=== PATIENT | male | born 1980 | race Caucasian/White ===

== ENCOUNTER 2018-08-05 10:26 | Outpatient (REF) | payer SELFPAY ==
[2018-08-05 22:29] LABS: Kit/Specimen SENT
== END 2018-08-05 10:46 ==
LOC: LBN 10:26
PROVIDERS: PCP Nurse Practitioner; Visit Provider Pathology Clinical Pathology/Laboratory Medicine
DX: Z00.5 Encounter for examination of potential donor of organ and tissue (principal)
CPT/HCPCS: 36415

== ENCOUNTER 2020-01-12 16:59 | Emergency (ER) | payer SELFPAY ==
[2020-01-12 17:04] VITALS: BP 138/76; PULSE 61; RESP 16; TEMP 36.5; O2SAT 99
--- NOTE | 2020-01-12 17:30 | DI.RAD_ITS ---
EXAM: XR PORTABLE CHEST AP CLINICAL HISTORY: cough, fever, r/o pneumonia. concern for covid TECHNIQUE: 2D digital imaging was performed. COMPARISON: CHEST 2 VIEWS PA,LAT from 12/07/2015 FINDINGS: MEDIASTINUM: Normal. HEART: Normal. PULMONARY VASCULATURE: Normal. LUNGS: There are increased lung markings in the bases bilaterally. No focal consolidating infiltrate is present. PLEURAL SPACE: No pleural effusion or pneumothorax. BONE:Normal. OTHER FINDINGS:There is poor inspiration. IMPRESSION: Increased lung markings in the bases bilaterally. No focal consolidating infiltrate. DATA REPOSITORY: RADIATION DOSE DELIVERED:
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
--- NOTE | 2020-01-12 18:09 | DI.VRAD_ITS ---
Addendum created by Jaiden Smith MD on 01/12/2020 6:14:53 PM EDT Hannah Koenig was made aware of the the above findings on 01/12/2020 at 6:14 p.m. Eastern standard time. Initial report created on 01/12/2020 6:09:01 PM EDT PROCEDURE INFORMATION: Exam: XR Chest, 1 View Exam date and time: 01/12/2020 5:53 PM Age: 39 years old Clinical indication: Other: Cough, fever, R/O pneumonia, concern for covid TECHNIQUE: Imaging protocol: XR of the chest Views: 1 view. COMPARISON: CR CHEST 2 VIEWS PA,LAT 12/07/2015 8:02 PM FINDINGS: Lungs: There is a rounded ground-glass opacification within the left lower lobe. There is questionable ground-glass opacification within the right lower lobe. These findings are new when compared to the prior study. Pleural space: Unremarkable. No pleural effusion. No pneumothorax. Heart/Mediastinum: Unremarkable. No cardiomegaly. Bones/joints: Unremarkable. IMPRESSION: Bilateral ground-glass opacifications as above. Clinical correlation is recommended. Further evaluation could be obtained with a CT scan of the chest for a more definitive diagnosis. Dictated and Authenticated by: Jaiden Smith MD. Ordering:PEPITO Young MD
[2020-01-12 18:27] VITALS: BP 126/79; PULSE 89; RESP 17; TEMP 36.8; O2SAT 97
== END 2020-01-12 19:05 | disposition home or self-care (01) ==
PROVIDERS: Emergency Provider Physician Assistant; PCP Nurse Practitioner
DX: R06.02 Shortness of breath (principal); R50.9 Fever, unspecified; R05 Cough; B34.9 Viral infection, unspecified; Z87.891 Personal history of nicotine dependence
CPT/HCPCS: 99283; 71045

== ENCOUNTER 2020-10-01 23:14 | Emergency (ER) | payer SELFPAY ==
--- NOTE | 2020-10-01 00:02 | DI.CT_ITS ---
EXAM: CT ABDOMEN PELVIS W CLINICAL HISTORY: mid abdominal pain, n/v. TECHNIQUE: Imaging Protocol: Axial computed tomography images with coronal and sagittal reformatted images were created and reviewed CONTRAST MATERIAL: Intravenous: Omnipaque 100cc Oral: None COMPARISON: No exams were available for comparison FINDINGS: VISUALIZED LUNG BASES: There is an 8-9 millimeter noncalcified pleural-based nodule in the medial asp ect posterior basal segment right lower lobe. This require follow-up. There no pleural effusions ev ident.. ABDOMEN: There is no ascites. LIVER: There are no obvious focal hepatic lesions evident. Intrahepatic ducts are not dilated GALLBLADDER/BILIARY: Minimal gallbladder wall thickening. No obvious gallstones. CBD is slightly pro minent measuring 8 millimeters. There is no calculus in the lower CBD. No obvious pancreatic head m ass. PANCREAS: No evidence of pancreatic mass nor dilatation of the pancreatic duct. SPLEEN: Spleen is not enlarged. No obvious intrasplenic lesions. Splenic and portal veins are paten t. ADRENALS: There are no significant adrenal masses. KIDNEYS: No calculi nor hydronephrosis. No solid renal masses. No cysts evident. ABDOMINAL AORTA: Abdominal aorta is not enlarged and there is no [id number] adenopat hy. ABDOMINAL WALL/GI: No evidence of significant anterior abdominal wall hernia. No bowel obstruction. PELVIS: GI: No evidence of appendicitis.No evidence of sigmoid diverticulitis.Mild thickening of the colon wa ll but this may just be related to lack of oral contrast within the lumen. Cannot exclude subtle col itis pattern. LYMPH NODES: There is no intrapelvic nor inguinal adenopathy. REPRODUCTIVE: Prostate gland is not enlarged. Seminal vesicles unremarkable. URINARY BLADDER: No calculi nor obvious masses evident OSSEOUS: No significant osseous lesions. Fractures of T7 and T10, not acute appearing IMPRESSION: 1. Mild gallbladder findings which are not associated with obvious calcified gallstones. Mild promin ence of the CBD. Recommend follow-up ultrasound. May be subtle cholecystitis here. 2. Slightly thick-walled colon but this may just be related to lack of oral contrast within the lumen . 3. There is a significant 9 millimeter pleural based nodule in the posterior basal segment of the rig ht lower lobe. This requires close follow-up. Recommend follow-up chest CT scan. 4. There are nonacute appearing compression deformities of T7 and T10 vertebral bodies. Mild central canal stenosis. RADIATION DOSE DELIVERED: 1,361.72mGy.cm Total DLP DATA REPOSITORY: All CT scans at this facility are submitted to the National Radiology Data Registry (NRDR) Dose Index Registry (DIR) with the [employer] (A[employer]). RADIATION OPTIMIZATION: All CT scans at this facility use at least one of these dose optimization te chniques: automated exposure control; mA and/or kV adjustment per patient size (includes targeted exa ms where dose is matched to clinical indication); or iterative reconstruction.
[2020-10-01 23:15] VITALS: BP 141/85; PULSE 54; RESP 18; TEMP 36.7; O2SAT 100
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
[2020-10-01] MEDS: Ketorolac 15 MG/ML VIAL IVP (23:25)
[2020-10-01] MEDS: Normal Saline 1,000 ML 1000 ML IV (23:25)
[2020-10-01] MEDS: Ondansetron 4 MG/2 ML VIAL IVP (23:25)
[2020-10-01 23:30] LABS: Abs Immature Grans 0.02 10^3/uL (0.0-0.06); Absolute Basophil Count 0.01 10^3/uL (0.0-0.2); Absolute Eosinophil Count 0.12 10^3/uL (0.0-0.7); Absolute Lymphocyte Count 0.89 10^3/uL (1.2-3.4); Absolute Monocyte Count 0.54 10^3/uL (0.1-0.8); Absolute Neutrophil Count 5.65 10^3/uL (1.2-6.7); BE (Venous) 5 mmol/L (-2-3); Basophils % 0.1; Eosinophils % 1.7; HCO3 (Venous) 29 mmol/L (23-28); HGB 14.2 g/dL (13.5-17.5); Immature Grans % 0.3; Lymphocytes % 12.3; MCH 29.9 pg (27.0-33.0); MCV 90.5 fL (80-95); MPV 10.6 fL (8.0-11.0); Monocytes % 7.5; Neutrophils % 78.1; Nucleated RBC 0 %; O2 Sat (Venous) 47 %; Platelet Count 244 10^3/uL (130-400); RBC 4.75 10^6/uL (4.36-5.78); RDW-SD 39.6 fL; TCO2 (Venous) 26 mmol/L (24-29); WBC 7.23 10^3/uL (4.4-10.8); pCO2 (Venous) 45 mmHg (41-51); pH (Venous) 7.42 (7.31-7.41); pO2 (Venous) 24 mmHg
[2020-10-01 23:32] VITALS: BP 129/82; PULSE 46; O2SAT 100
[2020-10-01 23:44] LABS: ALT 39 U/L (16-63); AST 17 U/L (15-37); Albumin 3.5 g/dL (3.4-5.0); Alkaline Phosphatase 87 U/L (46-116); BUN 18 mg/dL (7-18); Bilirubin, Direct 0.14 mg/dL (0.00-0.20); Bilirubin, Total 0.5 mg/dL (0.2-1.0); Calcium 9.2 mg/dL (8.5-10.1); Chloride 103 mmol/L (98-107); Glucose 142 mg/dL (74-106); Lipase 81 U/L (73-393); Magnesium 1.9 mg/dL (1.8-2.4); Potassium 3.7 mmol/L (3.5-5.1); Sodium 138 mmol/L (136-145); Total Protein 7.6 g/dL (6.4-8.2)
[2020-10-02 00:04] VITALS: RESP 16
[2020-10-02 00:04] LABS: ETHANOL BLOOD < 3.0 mg/dL (<3)
[2020-10-02] MEDS: Normal Saline - Diluent 50 ML VIAL IV (00:12)
[2020-10-02] MEDS: Omnipaque 350 MG/ML 100 ML BTL IJ (00:13)
[2020-10-02] MEDS: Normal Saline Flush 10 ML SYR IVP (00:15)
--- NOTE | 2020-10-02 00:23 | DI.VRAD_ITS ---
PROCEDURE INFORMATION: Exam: CT Abdomen And Pelvis With Contrast Exam date and time: 10/01/2020 11:21 PM Age: 40 years old Clinical indication: Nausea and vomiting; Patient HX: Nausea/vomiting, mid abdominal pain. TECHNIQUE: Imaging protocol: Computed tomography of the abdomen and pelvis with intravenous contrast. Radiation optimization: All CT scans at this facility use at least one of these dose optimization techniques: automated exposure control; mA and/or kV adjustment per patient size (includes targeted exams where dose is matched to clinical indication); or iterative reconstruction. Contrast material: OMNI-PAQUE 350; Contrast volume: 100 ml; Contrast route: INTRAVENOUS (IV); COMPARISON: No relevant prior studies available. FINDINGS: Lungs: There is mild bronchial wall thickening in the lung bases suggesting an element of bronchitis. No bronchiectasis or bronchial occlusions. Heart: Heart size normal. Mediastinal space: The visualized distal esophagus is normal. Liver: Normal contour. No mass lesions. No intrahepatic biliary ductal dilatation. Gallbladder and bile ducts: There is mild gallbladder wall thickening and surrounding stranding suggesting cholecystitis. Slightly heterogeneous internal content in the gallbladder could represent sludge or noncalcified stones. Mildly dilated common bile duct measuring 8 mm diameter. No duct stones or obstructive mass lesions were evident. Pancreas: Normal. No inflammatory changes or ductal dilation. Spleen: Normal. No splenomegaly. Adrenal glands: Normal. No adrenal mass. Kidneys and ureters: No acute abnormalities. No hydronephrosis or hydroureter. No urinary tract stones are identified. Stomach and bowel: The stomach is largely contracted without gross abnormality. The small bowel is normal with no evidence of obstruction. The colon is largely contracted which likely contributes to the mildly thick walled appearance. This makes it difficult to exclude mild colitis. Appendix: The appendix is normal in caliber and demonstrates no evidence of appendicitis. Intraperitoneal space: No free fluid or air. Vasculature: No acute process. No abdominal aortic aneurysm. Lymph nodes: No adenopathy. Urinary bladder: Unremarkable as visualized. Reproductive: Unremarkable as visualized. Bones/joints: Osteopenia. Chronic appearing moderate compression deformities of T10 and T7 with 2 mm retropulsion at T7 producing slight central canal stenosis. Soft tissues: Very small fatty umbilical hernia . No evidence of associated bowel herniation or bowel obstruction. Other findings: 8.5 mm juxtapleural nodule versus nodular scarring in the posteromedial right base on series 4, image 17. For both low risk and high risk patients, consider CT at 3 months, PET/CT or biopsy. (Navin et al., Fleischner Society, 2017). IMPRESSION: 1. Mild gallbladder wall thickening and pericholecystic edema/stranding consistent with cholecystitis. Slightly heterogeneous content in the gallbladder could represent noncalcified stones or sludge. 2. Mild dilatation of the common bile duct measuring 8 mm diameter. No obstructive duct stones or pancreatic head mass lesions were evident by noncontrast CT. No pancreatic ductal dilatation or evidence of pancreatitis. 3. 8.5 mm juxtapleural nodule in the posteromedial right base. Please see recommendations above. 4. Mild bronchial wall thickening in the lung bases suggesting an element of bronchitis, acute or chronic. 5. The colon is largely contracted which probably contributes to its thick-walled appearance. Cannot exclude mild colitis. 6. Additional non-emergent findings detailed above. Dictated and Authenticated by: Louis Morgan MD. Ordering:BERKLEY Keith MD
[2020-10-02] MEDS: Ondansetron O.D.T. 4 MG TABEF, 3 TABS/BTL PO (01:04)
[2020-10-02 01:05] VITALS: BP 135/81; PULSE 60; RESP 16; TEMP 36.8; O2SAT 98
[2020-10-02] MEDS: Amoxicillin 875/Clav. 125 TAB PO (01:05)
--- NOTE | 2020-10-02 05:42 | NUR.NOTE ---
referral faxed to general surgery for follow up care per Nursing Note:
== END 2020-10-02 01:15 | disposition home or self-care (01) ==
PROVIDERS: Emergency Provider Emergency Medicine; PCP Nurse Practitioner
DX: K81.0 Acute cholecystitis (principal)
CPT/HCPCS: 36415; 80053; 82805; 83690; 96361; 96374; 96375; 99285; 74177; 80320; 82248; 83735; 85025; 99284; J1885; J2405; J3490

== ENCOUNTER 2020-10-05 00:52 | Outpatient (CLI) | payer SELFPAY ==
--- NOTE | 2020-10-05 06:15 | DI.US_ITS ---
EXAM: US ABDOMEN CLINICAL HISTORY: acute ruq pain,r10.11 TECHNIQUE: Ultrasound of complete upper abdomen performed using standard protocol. COMPARISON: US THYROID ULTRASOUND from 08/22/2016 FINDINGS: There is no ascites evident. LIVER: There are no hepatic lesions evident nor dilatation of intrahepatic ducts. GALLBLADDER/BILIARY: The gallbladder if is filled with calculi and the gallbladder triana edema thus, with thickness up to 6 millimeters. There is some mild pericholecystic fluid. The common hepatic duct isnot dilated, measuring 6mm at the level of santhosh hepatis. PANCREAS: Less than optimally seen due to bowel gas. SPLEEN: The spleen is not enlarged and there are no intrasplenic lesions evident. KIDNEYS:Kidneys exhibit normal size with no evidence of solid mass, calculus, nor hydronephrosis. No cortical cysts evident. ABDOMINAL AORTA: There is no evidence of abdominal aortic aneurysm. IVC: Normal diameter where visualized. IMPRESSION: 1. Multiple gallstones and evidence of acute cholecystitis. CBD diameter is upper normal. 2. Pancreas was not well seen on this study due to bowel gas. 3. No other significant upper abdominal ultrasound findings. DATA REPOSITORY:
== END 2020-10-05 01:12 ==
PROVIDERS: PCP Nurse Practitioner; Visit Provider Surgery
DX: K80.00 Calculus of gallbladder with acute cholecystitis without obstruction (principal)
CPT/HCPCS: 76700

== ENCOUNTER 2020-12-01 01:58 | Outpatient (CLI) | payer BC, SELFPAY ==
[2020-12-03 15:24] LABS: COVID-19 RT-PCR UVMMC Result Negative (Negative)
== END 2020-12-01 01:59 | disposition home or self-care (01) ==
LOC: LBO 02:00
PROVIDERS: PCP Nurse Practitioner; Visit Provider Surgery
DX: Z20.822 Contact with and (suspected) exposure to COVID-19 (principal); Z01.818 Encounter for other preprocedural examination
CPT/HCPCS: U0003

== ENCOUNTER 2020-12-06 17:08 | Observation (INO) | payer BC, SELFPAY ==
[2020-12-06] VITALS (12 sets, daily range): BP systolic 106–125; BP diastolic 55–83; PULSE 50–61; RESP 14–29; TEMP 36–36.8; O2SAT 92–98
--- NOTE | 2020-12-06 10:30 | ROE_ITS ---
Date of service: 12/06/20 Time of Service: 14:08 Operative Note Operative Note DATE OF PROCEDURE: 12/06/20 PRE-OP DIAGNOSIS: Cholelithiasis POST-OP DIAGNOSIS: other (Chronic Cholecystitis) PROCEDURE: Laparoscopic Cholecystectomy SURGEON: Yakelin Melendrez FILTER PRESS TENDER: Kerri Schmitz ANESTHESIA TYPE: General LMA/ETT (ASA 2/ Lisette Velasco CRNA) Refer to Anesthesia Record ESTIMATED BLOOD LOSS: 75 PATHOLOGY: other (Gallbladder and content) COMPLICATIONS: None Patient was transported to: PACU Patient's condition: stable Indications: Mr. Lancaster is a pleasant 40-year-old gentleman who has been having right upper quadrant pain especially after eating fatty foods. He also notes nausea and vomiting after having eaten fatty foods. He was seen in the emergency department back in September and was noted to have inflammation of the gallbladder. He did not have any pericholecystic fluid and he blood work was normal. He was seen in the office and a laparoscopic cholecystectomy was recommended. At that time the patient did not have insurance and so decided not to have surgery. He now has insurance and is here for laparoscopic cholecystectomy. He continues with the same symptoms. Laparoscopic cholecystectomy was explained to the patient in layman's terms. Risks, benefits, complications were reviewed with the patient in the office. Complications include but are not limited to bleeding, infection, injury to stomach, small bowel and large bowel, injury to the pancreas, injury to the common bile duct necessitating drainage and referral to tertiary center for repair, bile leak, adverse reactions to the medications, complications of intubation including a sore throat or injury to the uvula, [place], stroke and even . Questions were entertained and answered to his satisfaction and he wished to proceed. Procedure Description: After informed consent was obtained the patient was brought to the operating room, placed in a supine position and monitors were applied. SCDs were applied to his lower extremities and he was placed under general anesthesia and intubated without difficulty. Once intubated a pierce catheter was placed in a standard sterile fashion. His abdomen was then prepped and draped in a sterile fashion using ChloraPrep. At this point a timeout was done and the patient's name, date of , procedure type, allergies to medications, metal in her body, antibiotic and DVT prophylaxis, and fire risk was assessed. At this point 2% Lidocaine was injected just above the umbilicus into the dermis and subcutaneous tissue. A 5 mm incision was made with an 11 blade. The skin next to the incision was grasped with penetrating towel clamps and while pulling up on the skin a 5 mm port was placed under direct visualization. The abdomen was insuflated and then 3 more ports were placed. A 12 mm port was placed in the subxiphoid area and two 5 mm ports were placed in the right upper quadrant. The liver was inspected and was normal. The patient's bed was then turned to the left and the head was brought up. The gallbladder was grasped at the body and pushed towards the right shoulder, this allowed me to visualize the neck of the gallbladder. The neck was grasped and pulled towards the right flank and down allowing me to visualize the lymph node. There was a lot of fat noted around the Gallbladder. Using a [place] dissector with cautery the lymph node was gently dissected away from the tissues and the fatty tissue was also dissected away from the neck of the Gallbladder so I could visualize the liver. The cystic duct was identified it was normal in size. The duct was dissected 360 degrees using the [place] dissector in order for me to visualize its entrance into the gallbladder. Liver was noted behind it. The cystic artery was noted to cross over the Cystic duct. It was dissected circuferentially and noted to go into the Gallbladder. Three clips were placed, one proximal and 2 distal and cut. There were no other structures right behind. Critical view was achieved. 3 clips were then placed on the cystic duct, one proximal and 2 distal and the cystic duct was cut. Using the hook dissector the gallbladder was then dissected away from the liver bed. The top of the Gallbladder was noted to be intrahepatic. Once it was completely removed it was placed into an Endo Catch bag. The subxiphoid incision had to be opened to 3 cm in order to pull the Gallbladder out. Part of the fascia was closed with a figure of eight stitch. The 12 mm port was placed back into the abdomen under direct visualization. The liver bed was inspected and there was bleeding noted. Surgicell was applied to the liver bed and covered with a raytech. Pressure was held for 1 minute. The surgicel was then removed as well as the raytech. There was a small amount of bleeding noted at the edge of the liver and this was cauterized. The abdomen was then irrigated with a 2 and a half liters of normal saline until the effluent was clear. Once all the fluid was suctioned out,floseal was applied to the liver bed. The 12 mm portsite was closed with 0 vicryl using the Russ Arreaga instrument. Next the 2 right upper quadrant ports were removed under direct visualization and no bleeding was noted from the fascia. The abdomen was deflated completely and lastly the umbilical port was removed. The skin was cleaned and the incisions were closed with 4-0 Vicryl. The skin was dried and skin affix was applied over the closed incisions. Needle and sponge counts were correct at the end of the case. The Pierce catheter was removed. At this point the patient was woken up, extubated and taken back to recovery in stable condition. There were no immediate complications.
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
[2020-12-06] MEDS: Celecoxib 200 MG CAP PO (11:02)
[2020-12-06] MEDS: Acetaminophen 500 MG TAB 1000 MG PO (11:02)
[2020-12-06] MEDS: Lactated Ringers 1,000 ML 80 ML IV ×2 (11:12→19:39)
--- NOTE | 2020-12-06 13:25 | W.PM.DSUDISC ---
Discharge Plan Discharge Details Attending Provider: Yakelin Melendrez Primary Care Provider: Dariela Singleton Home Meds and New Rx's Prescriptions: No Action ondansetron 4 mg tablet,disintegrating 4 mg PO Q8H PRN (Reason: nausea and vomiting) Qty: 30 RF: 0 amoxicillin-pot clavulanate [Augmentin] 875-125 mg tablet 1 tab PO BID Qty: 14 RF: 0 oxycodone 5 mg tablet 5 mg PO Q6H PRNQty: 8 RF: 0 DS: Diagnosis Discharge Diagnosis (1) Cholelithiasis and cholecystitis without obstruction: Status: Acute
[2020-12-06] MEDS: AMPICILLIN/SULBACTAM 3 GM in Normal Saline 100 ML IVPB ×2 (13:55→19:39)
[2020-12-06] MEDS: Lidocaine 2% Multi-Dose 50 ML VIAL (14:08)
[2020-12-06] MEDS: Cellulose,Oxidized 4X8 1 PACKET MC (14:49)
--- NOTE | 2020-12-06 15:06 | GB_PTH ---
PATIENT: Dwaine Lancaster LOC: U#:[id number] AGE/SX: 40/M ROOM: RE12/06/[address]: Yakelin Melendrez MD : 1980 BED: A DIS: 12/07/2020 SPEC #: [id number] RECD: 12/06/20 16:45 STATUS: CRYS REQ #: [id number] TASNEEM: 12/06/20 15:[address]: Yakelin Melendrez DEPT: Surgical Specimen RECD BY: Ksenia Fuentes ENTERED: 12/06/20 16:45 SP TYPE: GB OTHR DR: Dariela Singleton APRN Tissues: 1 - GALLBLADDER Procedures: GROSS AND MICRO LEVEL 3 Comments: [id number]
[2020-12-06] MEDS: Bupivacaine 0.25% Pres-Free 30 ML VIAL (15:46)
[2020-12-06] MEDS: HYDROmorphone 2 MG/ML VIAL IVP ×2 (17:09→17:21)
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
[2020-12-06] MEDS: Docusate Sodium 100 MG CAP PO (19:40)
[2020-12-06] MEDS: Acetaminophen 325 MG TAB 650 MG PO (20:32)
[2020-12-07] MEDS: oxyCODONE 5 MG TAB PO (01:02)
[2020-12-07] MEDS: AMPICILLIN/SULBACTAM 3 GM in Normal Saline 100 ML IVPB (04:07)
[2020-12-07] MEDS: Acetaminophen 325 MG TAB 650 MG PO (04:11)
[2020-12-07 06:58] LABS: Abs Immature Grans 0.04 10^3/uL (0.0-0.06); Absolute Basophil Count 0.01 10^3/uL (0.0-0.2); Absolute Lymphocyte Count 0.92 10^3/uL (1.2-3.4); Absolute Monocyte Count 1.32 10^3/uL (0.1-0.8); Basophils % 0.1; Eosinophils % 0.1; HCT 42.2 % (40.0-50.0); HGB 14.1 g/dL (13.5-17.5); Immature Grans % 0.3; Lymphocytes % 6.6; MCH 29.8 pg (27.0-33.0); MCHC 33.4 % (32.0-36.0); MCV 89.2 fL (80-95); MPV 11.5 fL (8.0-11.0); Monocytes % 9.5; Neutrophils % 83.4; Nucleated RBC 0 %; Platelet Count 192 10^3/uL (130-400); RBC 4.73 10^6/uL (4.36-5.78); RDW 12.3 % (11.8-14.1); RDW-SD 40.5 fL; WBC 13.87 10^3/uL (4.4-10.8)
[2020-12-07 07:01] LABS: Absolute Eosinophil Count 0.01 10^3/uL (0.0-0.7); Absolute Neutrophil Count 11.57 10^3/uL (1.2-6.7)
[2020-12-07 07:04] LABS: Anion Gap 8.3 mmol/L (3-11); BUN 18 mg/dL (7-18); CO2 25.7 mmol/L (21.0-32.0); Calcium 8.5 mg/dL (8.5-10.1); Chloride 106 mmol/L (98-107); Glucose 110 mg/dL (74-106); Potassium 4.1 mmol/L (3.5-5.1); Sodium 140 mmol/L (136-145)
[2020-12-07 07:40] VITALS: BP 118/69; PULSE 45; RESP 20; TEMP 36.9; O2SAT 95
--- NOTE | 2020-12-07 07:58 | W.PM.PROGNOT ---
Date of Service Date of service: 12/07/20 Time of Service: 07:58 Assessment and Plan Assessment and plan (1) Cholelithiasis and cholecystitis without obstruction: Status: Acute Assessment and plan: POD #1 s/p Lap Cholecystectomy Pain is well controlled. No Nausea or vomiting. Tolerating regular diet, Low fat diet. WBC count slightly elevated this morning. Patient did receive intra-operative antibiotics. If his pain continues to be well controlled and he tolerates breakfast, will d/c home later today. He will need to continue to follow a Low fat diet upon d/c. Will schedule follow up appointment with Dr. Melendrez in the office. Qualifiers: Cholelithiasis location: gallbladder Cholecystitis acuity: chronic Qualified Code(s): K80.10 - Calculus of gallbladder with chronic cholecystitis without obstruction Subjective Subjective Interval history since last seen: Feeling okay this morning. States he has some abdominal discomfort this morning, which improved with ambulation. Denies any N, V, fevers or chills. Exam Const General: cooperative and comfortable Orientation: alert and oriented x3 Resp Effort & Inspection: normal respiratory effort, no audible wheezes and no cough GI Inspection: normal to inspection and incision (dressed with tegaderm and gauze. ) Palpation: soft, no guarding and tender in the epigastrum and in the RUQ Objective Last Vital Signs Temp 36.9 C 12/07/20 07:40 Pulse 45 L 12/07/20 07:40 Resp 20 12/07/20 07:40 BP 118/69 12/07/20 07:40 Pulse Ox 95 12/07/20 07:40 Laboratory Results - last 24 hr 12/07/20 12/07/20 06:23 06:23 WBC 13.87 H RBC 4.73 Hgb 14.1 Hct 42.2 MCV 89.2 MCH 29.8 MCHC 33.4 RDW 12.3 Plt Count 192 MPV 11.5 H Immature Gran % 0.3 Neutrophils % 83.4 Lymphocytes % 6.6 Monocytes % 9.5 Eosinophils % 0.1 Basophils % 0.1 Nucleated RBC % 0 Absolute Neutrophils 11.57 H Absolute Lymphocytes 0.92 L Absolute Monocytes 1.32 H Absolute Eosinophils 0.01 Absolute Basophils 0.01 Sodium 140 Potassium 4.1 Chloride 106 Carbon Dioxide 25.7 Anion Gap 8.3 BUN 18 Creatinine 1.0 Estimated GFR/1.73 m2 >= 60.00 Glucose 110 H Calcium 8.5
[2020-12-07] MEDS: Docusate Sodium 100 MG CAP PO (08:26)
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
== END 2020-12-07 10:44 | disposition home or self-care (01) ==
LOC: PDS 17:31 → MS 17:47 → SUR 17:54 → MS 17:54
PROVIDERS: Admitting Provider Surgery; PCP Nurse Practitioner; Visit Provider Surgery
PROC: 0FT44ZZ Resection of Gallbladder, Percutaneous Endoscopic Approach (ICD-10-PCS; CPT 47562; principal; 2020-12-06 12:00)
DX: K80.12 Calculus of gallbladder with acute and chronic cholecystitis without obstruction (principal); Z87.891 Personal history of nicotine dependence; R91.1 Solitary pulmonary nodule; H54.62 Unqualified visual loss, left eye, normal vision right eye
CPT/HCPCS: 47562; 36415; 80048; 90686; 99232; 99238; NC; 85025; 88304; G0378; J0295; J1100; J1885; J2001; J2250; J2405; J2704

== ENCOUNTER 2020-12-14 13:43 | Outpatient (REF) | payer BC, SELFPAY ==
[2020-12-14 13:44] LABS: Abs Immature Grans 0.03 10^3/uL (0.0-0.06); Absolute Basophil Count 0.02 10^3/uL (0.0-0.2); Absolute Eosinophil Count 0.51 10^3/uL (0.0-0.7); Absolute Lymphocyte Count 1.55 10^3/uL (1.2-3.4); Basophils % 0.3; Eosinophils % 7.3; HCT 45.2 % (40.0-50.0); HGB 15.5 g/dL (13.5-17.5); Immature Grans % 0.4; Lymphocytes % 22.1; MCH 30.6 pg (27.0-33.0); MCHC 34.3 % (32.0-36.0); MCV 89.3 fL (80-95); MPV 11.1 fL (8.0-11.0); Monocytes % 8.6; Neutrophils % 61.3; Nucleated RBC 0 %; Platelet Count 287 10^3/uL (130-400); RBC 5.06 10^6/uL (4.36-5.78); RDW 11.9 % (11.8-14.1); RDW-SD 38.5 fL; WBC 7.01 10^3/uL (4.4-10.8)
== END 2020-12-14 13:44 | disposition home or self-care (01) ==
LOC: LBN 13:43
PROVIDERS: PCP Nurse Practitioner; Visit Provider Physical Therapy Assistant
DX: Z90.49 Acquired absence of other specified parts of digestive tract (principal)
CPT/HCPCS: 85025

== ENCOUNTER 2021-01-20 12:36 | Emergency (ER) | payer BC, SELFPAY ==
[2021-01-20 12:41] VITALS: BP 126/80; PULSE 84; RESP 16; TEMP 36.5; O2SAT 98
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
== END 2021-01-20 14:29 | disposition home or self-care (01) ==
PROVIDERS: Emergency Provider Emergency Medicine; PCP Nurse Practitioner
DX: S62.315A Displaced fracture of base of fourth metacarpal bone, left hand, initial encounter for closed fracture (principal); V86.69XA Passenger of other special all-terrain or other off-road motor vehicle injured in nontraffic accident, initial encounter
CPT/HCPCS: 29125; 99284; 71046; 73130; 99283

== ENCOUNTER 2021-02-05 14:57 | Outpatient (CLI) | payer BC, SELFPAY ==
--- NOTE | 2021-02-05 11:15 | DI.RAD_ITS ---
EXAM: XR HAND LT COMPLETE CLINICAL HISTORY: F/U FRACTURE. TECHNIQUE: 2D digital imaging was performed. COMPARISON: CR,XR XR HAND LT COMPLETE from 01/20/2021 FINDINGS: Previously described fracture of the base of the 4th metatarsal is again noted. Exhibits minimal ashleigh nge. No rib additional fractures evident. No radiopaque foreign body. No osseous lesions. IMPRESSION: DATA REPOSITORY: RADIATION DOSE DELIVERED:
== END 2021-02-05 14:58 | disposition home or self-care (01) ==
LOC: DIORS 14:58
PROVIDERS: PCP Nurse Practitioner; Referring Provider Nurse Practitioner; Visit Provider Physician Assistant
DX: S62.315D Displaced fracture of base of fourth metacarpal bone, left hand, subsequent encounter for fracture with routine healing (principal)
CPT/HCPCS: 73130

== ENCOUNTER 2024-05-28 11:17 | Emergency (ER) | payer OTHER, SELFPAY ==
[2024-05-28 11:20] VITALS: BP 119/73; PULSE 59; RESP 20; TEMP 36.5; O2SAT 99
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
[2024-05-28 11:56] VITALS: BP 120/78; PULSE 75; RESP 14; O2SAT 94
[2024-05-28] MEDS: Ketorolac 15 MG/ML VIAL IM (11:56)
== END 2024-05-28 12:01 | disposition home or self-care (01) ==
LOC: ER 11:44
PROVIDERS: Emergency Provider Emergency Medicine; PCP Nurse Practitioner
DX: L56.8 Other specified acute skin changes due to ultraviolet radiation (principal); Z87.891 Personal history of nicotine dependence; X32.XXXA Exposure to sunlight, initial encounter; Y93.16 Activity, rowing, canoeing, kayaking, rafting and tubing; Y92.89 Other specified places as the place of occurrence of the external cause
CPT/HCPCS: 96372; 99284; 99283; J1885

== ENCOUNTER 2024-08-22 16:20 | Emergency (ER) | payer OTHER, SELFPAY ==
[2024-08-22 16:23] VITALS: BP 127/82; PULSE 71; RESP 18; TEMP 35.8; O2SAT 96
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
[2024-08-22 17:12] VITALS: RESP 16
[2024-08-22 17:23] LABS: D-Dimer 444 ng/mlFEU (<500)
[2024-08-22 17:48] VITALS: PULSE 64; RESP 16; TEMP 36.5; O2SAT 96
== END 2024-08-22 17:49 | disposition home or self-care (01) ==
PROVIDERS: Emergency Provider Physician Assistant; PCP Nurse Practitioner
DX: R22.32 Localized swelling, mass and lump, left upper limb (principal); M79.9 Soft tissue disorder, unspecified; Z87.891 Personal history of nicotine dependence
CPT/HCPCS: 36415; 99283; 85379

== ENCOUNTER 2024-11-18 16:08 | Emergency (ER) | payer OTHER, SELFPAY ==
[2024-11-18 16:10] VITALS: BP 131/90; PULSE 59; RESP 15; TEMP 36.5; O2SAT 96
[2024-11-18 16:13] VITALS: BP 131/90; PULSE 59; RESP 15; TEMP 36.5; O2SAT 96
--- NOTE | 2024-11-18 16:30 | DI.RAD_ITS ---
Exam(s) XR CHEST 2V PA LATERAL EXAM: XR CHEST 2V PA LATERAL CLINICAL HISTORY: cough. TECHNIQUE: 2D digital imaging was performed. COMPARISON: CR,XR XR CHEST 2V PA LATERAL from 01/20/2021 FINDINGS: 2 views: Heart size is normal. The mediastinum is not widened. No infiltrates nor pleural effusions. IMPRESSION: No acute pulmonary findings. DATA REPOSITORY: RADIATION DOSE DELIVERED:
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
[2024-11-18 16:49] VITALS: RESP 5
[2024-11-18] MEDS: predniSONE 20 MG TAB 60 MG PO (16:49)
[2024-11-18] MEDS: Albuterol/Ipratropium 3 ML UPD VIAL UPD (16:49)
[2024-11-18 17:00] LABS: COVID-19 PCR Negative (Negative); Influenza A PCR Positive (Negative); Influenza B PCR Negative (Negative); RSV PCR Negative (Negative)
[2024-11-18 17:01] LABS: Source NASOPHARYNX
[2024-11-18] MEDS: Inhaler, Assist Device 1 EACH MC (17:45)
[2024-11-18] MEDS: Albuterol HFA 8 GM 60 PUFF INH IH (17:45)
[2024-11-18 17:47] VITALS: PULSE 59; RESP 16; TEMP 36.5; O2SAT 98
== END 2024-11-18 17:48 | disposition home or self-care (01) ==
PROVIDERS: Emergency Provider Emergency Medicine; PCP Nurse Practitioner
DX: J10.1 Influenza due to other identified influenza virus with other respiratory manifestations (principal)
CPT/HCPCS: 87637; 94640; 99285; 71046; 99284; J7512; J7620

== ENCOUNTER 2025-03-04 04:11 | Emergency (ER) | payer OTHER, SELFPAY ==
[2025-03-04 04:12] VITALS: BP 148/93; PULSE 72; RESP 18; TEMP 36.8; O2SAT 96
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
[2025-03-04 04:17] VITALS: BP 148/93; PULSE 72; RESP 18; TEMP 36.8; O2SAT 96
[2025-03-04 04:30] VITALS: RESP 18
[2025-03-04] MEDS: Albuterol/Ipratropium 3 ML UPD VIAL UPD (04:53)
--- NOTE | 2025-03-04 04:57 | DI.RAD_ITS ---
Exam(s) XR CHEST 2V PA LATERAL EXAM: XR CHEST 2V PA LATERAL CLINICAL HISTORY: cough, wheezing. TECHNIQUE: 2D digital imaging was performed. COMPARISON: CR XR CHEST 2V PA LATERAL from 11/18/2024 FINDINGS: 2 views: Heart size is normal. The mediastinum is not widened. Lungs are clear. No infiltrates nor pleural effusions. IMPRESSION: No acute pulmonary findings. DATA REPOSITORY: RADIATION DOSE DELIVERED:
[2025-03-04] MEDS: predniSONE 20 MG TAB 60 MG PO (05:17)
[2025-03-04] MEDS: Albuterol HFA 8 GM 60 PUFF INH IH (05:17)
[2025-03-04] MEDS: Azithromycin 250 MG TAB 500 MG PO (05:17)
--- NOTE | 2025-03-04 05:51 | DI.VRAD_ITS ---
PROCEDURE INFORMATION: Exam: XR Chest Exam date and time: 03/04/2025 4:54 AM Age: 44 years old Clinical indication: Cough and wheezing; Cough, wheezing TECHNIQUE: Imaging protocol: Radiologic exam of the chest. Views: 2 views. COMPARISON: CR XR CHEST 2V PA LATERAL 11/18/2024 5:07 PM FINDINGS: Lungs: No focal consolidation seen. Pleural spaces: No large pleural effusion seen. Heart/Mediastinum: No cardiomegaly. Bones/joints: No acute abnormality. IMPRESSION: No acute findings to explain reported symptoms. Dictated and Authenticated by: Irma Chavira MD. Orderin Freddy León MD
== END 2025-03-04 05:41 | disposition home or self-care (01) ==
PROVIDERS: Emergency Provider Emergency Medicine; PCP Nurse Practitioner
DX: J40 Bronchitis, not specified as acute or chronic (principal); B30.8 Other viral conjunctivitis
CPT/HCPCS: 99284; 99283; 94640; 71046; J7512; J7620

== ENCOUNTER 2025-05-07 17:12 | Emergency (ER) | payer OTHER, SELFPAY ==
[2025-05-07 17:28] VITALS: BP 115/81; PULSE 68; RESP 18; TEMP 36.5; O2SAT 95
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
--- NOTE | 2025-05-07 18:02 | DI.RAD_ITS ---
Exam(s) XR FINGER LT RING EXAM: XR FINGER LT RING EXAM DATE/TIME: CLINICAL HISTORY: distal finger injury. TECHNIQUE: 2D digital imaging was performed of the left finger. Three views were obtained. PA/AP, oblique, and lateral views were obtained. COMPARISON: Comparison examination is 02/05/2021. FINDINGS: BONES: No acute fracture is present. No bony destructive lesion is seen. JOINTS: No dislocation is present. SOFT TISSUE: Normal. IMPRESSION: 1. No evidence of acute fracture or dislocation. 2. The preliminary [facility] report was reviewed. DATA REPOSITORY: RADIATION DOSE DELIVERED:
--- NOTE | 2025-05-07 18:56 | DI.[facility]_ITS ---
PROCEDURE INFORMATION: Exam: XR Left Finger(s) Exam date and time: 05/07/2025 5:59 PM Age: 45 years old Clinical indication: Pain; Finger(s) and other: Distal finger injury; Left TECHNIQUE: Imaging protocol: Radiologic exam of the left fingers. Views: Minimum 2 views. COMPARISON: CR XR HAND LT COMPLETE 02/05/2021 11:27 AM FINDINGS: Bones/joints: There has been interval healing of the prior fracture at the base of the 4th metacarpal. There are no acute displaced fractures or subluxations. Osseous mineralization is normal. There are no inflammatory osseous erosive changes. The joint spaces are maintained without degenerative changes. No focal osseous lesions are identified. Soft tissues: Normal. IMPRESSION: No acute displaced fractures or subluxations identified. Dictated and Authenticated by: Louis Walker MD. Orderin Sona Ventura MD
[2025-05-07 19:10] VITALS: BP 120/75; PULSE 64; RESP 16; O2SAT 98
== END 2025-05-07 19:11 | disposition home or self-care (01) ==
PROVIDERS: Emergency Provider Physician Assistant; PCP Nurse Practitioner
DX: W23.2XXA Caught, crushed, jammed or pinched between a moving and stationary object, initial encounter; S67.195A Crushing injury of left ring finger, initial encounter; S60.042A Contusion of left ring finger without damage to nail, initial encounter
CPT/HCPCS: 99283 ×2; 73140

== ENCOUNTER 2025-06-23 11:13 | Outpatient (CLI) | payer OTHER, SELFPAY ==
[2025-06-23 07:54] LABS: Abs Immature Grans 0.01 10^3/uL (0.0-0.06); HCT 44.0 % (40.0-50.0); HGB 14.7 g/dL (13.5-17.5); Immature Grans % 0.2 %; MCH 30.6 pg (27.0-33.0); MCHC 33.4 % (32.0-36.0); MCV 92 fL (80-95); MPV 10.9 fL (8.0-11.0); Platelet Count 195 10^3/uL (130-400); RBC 4.81 10^6/uL (4.36-5.78); RDW 12.7 % (11.8-14.1); RDW-SD 42.9 fL; WBC 5.14 10^3/uL (4.4-10.8)
[2025-06-23 07:57] LABS: Glucose Negative (Negative)
[2025-06-23 08:20] LABS: Hemoglobin A1C 5.5 % (<5.7)
[2025-06-23 08:30] LABS: ALT 31 U/L (16-63); AST 18 U/L (15-37); Albumin 3.5 g/dL (3.4-5.0); Alkaline Phosphatase 78 U/L (46-116); Anion Gap 7.4 mmol/L (3-11); BUN 26 mg/dL (7-18); Bilirubin, Total 0.6 mg/dL (0.2-1.0); CO2 30.6 mmol/L (21.0-32.0); Calcium 8.4 mg/dL (8.5-10.1); Calculated LDL 91 mg/dL (<100); Chloride 107 mmol/L (98-107); Cholesterol 152 mg/dL (<200); Estimated GFR 108.01 (mL/min/1.73m2); Glucose 90 mg/dL (74-106); HDL Cholesterol 52 mg/dL (>or=40); Potassium 3.7 mmol/L (3.5-5.1); Sodium 145 mmol/L (136-145); TSH 2.29 uIU/mL (0.36-3.74); Total Protein 6.9 g/dL (6.4-8.2); Triglyceride 46 mg/dL (<150)
[2025-06-23 18:17] LABS: PSA, Screening 0.4 ng/mL (<=2.5)
== END 2025-06-23 11:14 | disposition home or self-care (01) ==
LOC: LBO 11:13
PROVIDERS: PCP Nurse Practitioner; Referring Provider Family Medicine; Visit Provider Family Medicine
DX: R53.83 Other fatigue; R35.0 Frequency of micturition
CPT/HCPCS: 36415; 80053; 80061; 84153; 81003; 83036; 84443; 85025